=== PATIENT | female | born 1980 | race Caucasian/White ===

== ENCOUNTER 2016-06-17 07:06 | Emergency (ER) | payer OTHER ==
[~2016-06-17] VITALS: Ht 152.4 cm; Wt 52.2 kg
--- NOTE | 2016-06-17 07:25 | ED GU-Female ---
General Stated Complaint: VAG BLEEDING 16 WKS PREG Source: patient, RN notes reviewed Exam Limitations: no limitations History of Present Illness Time seen by provider: 07:25 Initial Comments Patient presents c/ c/o vaginal bleeding this AM. Patient is 16 weeks c/ twins. Her OB is in [place]. Scheduled to see a high school combination teacher today in [place] secondary to one of her fetuses having a decreased amount of amniotic fluid. Denies any pain presently. States did have some cramping a couple days ago. No fever. No , or GI symptoms. Timing/Duration: just prior to arrival, this morning, constant Severity/Quality: moderate Activities at Onset: sleep Prior Genitourinary Problems: none Sexual [place] History: not active Modifying Factors: Improves With Lying down Associated Symptoms: denies symptoms Allergies and Home Medications Allergies Coded Allergies: No Known Drug Allergies (Unverified , 06/17/16) Home Medications Acetaminophen 325 Mg Tablet 325 MG PO PRN (Reported) Aspirin 81 Mg Tablet.dr 81 MG PO DAILY (Reported) Folic Acid 1 Mg Tablet 1 MG PO DAILY (Reported) Pnv95/Ferrous Fumarate/FA 1 Each Tablet 1 EACH PO DAILY (Reported) Constitutional: see HPI Genitourinary: other (vaginal bleeding (BRB)) : Yes Musculoskeletal: see HPI other (did develop some right flank pain while here. Apparently has been having right flank pain intermittently.) All Other Systemes Reviewed Negative Unless Noted: Yes (Negative excepted noted.) Physical Exam Vital Signs Vital Sign - Last 12Hours 06/17/16 07:26 Temp 98.5 Pulse 81 Resp 18 B/P 140/77 Pulse Ox 99 Capillary Refill : General Appearance: WD/WN no apparent distress other (a little anxious) Cardiovascular: regular rate, rhythm Respiratory: no respiratory distress Rectal: deferred Neurologic/Psychiatric: no motor/sensory deficits alert normal mood/affect oriented x 3 Skin: warm/dry Progress/Results/Core Measures Results/Orders Lab Results Laboratory Tests Test 06/17/16 09:10 Range/Units Urine Bacteria TRACE /HPF Urine Bilirubin NEGATIVE NEGATIVE Urine Casts NONE /LPF Urine Clarity CLEAR Urine Color BRIAN H Urine Crystals NONE /LPF Urine Culture Indicated NO Urine Glucose (UA) NEGATIVE NEGATIVE Urine Ketones NEGATIVE NEGATIVE Urine Leukocyte Esterase 1+ H NEGATIVE Urine Mucus NEGATIVE /LPF Urine Nitrite NEGATIVE NEGATIVE Urine Protein 2+ H NEGATIVE Urine RBC >100 H /HPF Urine RBC (Auto) 5+ H NEGATIVE Urine Specific [place] 1.010 L 1.016-1.022 Urine Squamous Epithelial Cells 5-10 /HPF Urine Urobilinogen NORMAL NORMAL MG/DL Urine WBC 5-10 H /HPF Urine pH 7 5-9 My Orders Orders-SIMA BATISTA DO Ob Preg Late(14-40wks)17387 (06/17/16 07:25) Acetaminophen Tablet (Tylenol Tablet) (06/17/16 08:45) Ua Culture If Indicated (06/17/16 09:19) Saline Lock/Iv-Start (06/17/16 10:16) Lactated Ringers (Lr 1000 Ml Iv Solution (06/17/16 10:30) Medications Given in ED Current Medications Medications Dose Ordered Sig/Maria [place]isa Route Start Time Stop Time Status Last Admin Dose Admin Acetaminophen 500 mg ONCE ONCE PO 06/17/16 08:45 06/17/16 08:46 DC 06/17/16 08:48 500 MG Vital Signs/I&O Vital Sign - Last 12Hours 06/17/16 06/17/16 07:26 12:04 Temp 98.5 Pulse 81 78 Resp 18 18 B/P 140/77 Pulse Ox 99 99 Progress Note : Progress Note Spoke c/ patient's OB physician's nurse who spoke c/ the patient's OB ( [facility]). Requested patient come to [facility] L&D for further evaluation. W both feel the patient is stable enough to go POV. is here to drive her. Copy of her US is sent c/ her. Diagnostic Imaging Diagonstic Imaging: Ultrasound Plain Films/CT/US/NM/MRI: pelvis Reviewed: Discussed w/Radiologist Departure Impression Impression: Primary Impression: Vaginal bleeding before 22 weeks gestation Disposition: XFER SHT-TRM HOSP Condition: Stable Departure-Patient Inst. Decision time for Depature: 11:43 Referrals: NO,LOCAL PHYSICIAN (PCP/Family) Primary Care Physician Patient Instructions: Bleeding With (DC) Add. Discharge Instructions: PROCEED DIRECTLY TO [facility] IN [place] FOR FURTHER EVALUATION AND TREATMENT. SIMA BATISTA DO Jun 17, 2016 07:25
[2016-06-17] MEDS ORDERED: FOLI1TAB24 PO (07:35)
[2016-06-17] MEDS ORDERED: ACET325T38 PO (07:35)
[2016-06-17] MEDS ORDERED: PNV91TAB3 PO (07:35)
[2016-06-17] MEDS ORDERED: ASPI-586 PO (07:35)
[2016-06-17] MEDS ORDERED: ACETAMINOPHEN 500 MG TAB (TYLENOL) PO ONE (08:45)
[2016-06-17 09:24] LABS: BILIRUBIN,URINE NEGATIVE (NEGATIVE); KETONES,URINE NEGATIVE (NEGATIVE); LEUKOCYTE ESTERASE ,URINE 1+ (NEGATIVE); NITRITE,URINE NEGATIVE (NEGATIVE); PH,URINE 7 (5-9); PROTEIN,URINE 2+ (NEGATIVE); UROBILINOGEN,URINE NORMAL (NORMAL)
--- NOTE | 2016-06-17 10:12 | Diagnostic Imaging Report ---
EXAMINATION: OB ultrasound. INDICATION: Severe right flank pain. Leaking fluid. FINDINGS: There is a twin . In the lower aspect of the uterus, Baby A has a heart rate of 130 BPM and Baby B more superiorly located has a heart rate of 132 BPM. Baby A has a very small amount of fluid around it with a thin amniotic membrane seen. Most of the fluid in the uterus appears to be within the Baby B sac. Baby B, however, has edema in the body wall and in the head. Growth parameters were obtained and demonstrate measurements around 16 weeks and 5 days for Baby A with measurements around 17 weeks and 0 days for Baby B. Baby B's abdominal circumference is at 18 weeks which is about 1 week larger than the rest of the parameters. The placenta is to the right of the uterus and only one placenta is seen. No retroplacental hemorrhage is noted. There is mild right hydronephrosis seen in the maternal kidney on the right side. IMPRESSION: 1. There is a twin with oligohydramnios of Baby A. Baby B demonstrates body wall edema, concerning for hydrops. 2. There is mild hydronephrosis in the maternal right kidney. The critical findings were discussed with Dr. Tejada by Dr. Nagy at the time of dictation. The patient has an appointment with a high school french teacher and will be transferred for further evaluation. Dictated by: Dictated on workstation # [id number]
[2016-06-17] MEDS ORDERED: LACTATED RINGERS 1,000 ML IV SCH (10:30)
[2016-06-17 12:04] VITALS: BP 136/72
== END 2016-06-17 12:04 | disposition short-term general hospital (02) ==
LOC: EDUNIT# 07:06 → ER 07:09
DX: O46.92 Antepartum hemorrhage, unspecified, second trimester (principal); O41.02X1 Oligohydramnios, second trimester, fetus 1; O30.032 Twin pregnancy, monochorionic/diamniotic, second trimester; Z3A.16 16 weeks gestation of pregnancy
CPT/HCPCS: 76805; 81000; 99282